=== PATIENT | female | born 1965 | race Two or more races ===

== ENCOUNTER 2016-11-21 19:49 | Emergency (ER) | payer MEDICAID, OTHER ==
[~2016-11-21] VITALS: Ht 157.5 cm; Wt 60.0 kg
[~2016-11-21 19:49] MED LIST: METF500T4 PO
[2016-11-21] MEDS ORDERED: SULFAMETH./TRIMETHOPRIM DS 800MG/160MG TABLET PO ONE (21:30)
[2016-11-21] MEDS ORDERED: SODIUM CHLORIDE FLUSH 10ML SYR IVF ONE (21:30)
[2016-11-21] MEDS ORDERED: CEFAZOLIN PMX 1GM/50ML 50 ML IVPB ONE (21:30)
[2016-11-21 21:43] LABS: BLOOD UREA NITROGEN 13 mg/dL (7-18)
[2016-11-21] MEDS ORDERED: SULFAMETH./TRIMETHOPRIM DS 800MG/160MG TABLET ONE (21:52)
[2016-11-21] MEDS ORDERED: CEFAZOLIN PMX 1GM/50ML 50 ML ONE (21:52)
[2016-11-21 22:36] VITALS: BP 172/80
== END 2016-11-21 22:42 | disposition home or self-care (01) ==
LOC: ED 22:13
DX: L03.031 Cellulitis of right toe (principal); E78.00 Pure hypercholesterolemia, unspecified; E11.9 Type 2 diabetes mellitus without complications; Z89.421 Acquired absence of other right toe(s)
CPT/HCPCS: 36415; 73660; 80048; 82040; 85025; 96365; 99285; J0690

== ENCOUNTER 2016-11-22 18:12 | Emergency (ER) | payer MEDICAID, OTHER ==
[~2016-11-22] VITALS: Ht 154.9 cm; Wt 59.6 kg
[2016-11-22 18:25] VITALS: BP 111/68
== END 2016-11-22 18:45 | disposition home or self-care (01) ==
LOC: ED 18:39
DX: L03.031 Cellulitis of right toe (principal); E78.00 Pure hypercholesterolemia, unspecified; E11.9 Type 2 diabetes mellitus without complications
CPT/HCPCS: 99281